=== PATIENT | female | born 1970 | race Asian ===

== ENCOUNTER 2016-08-21 13:50 | Emergency (ER) | payer BC, OTHER ==
[~2016-08-21] VITALS: Ht 160 cm; Wt 77.1 kg
[2016-08-21] MEDS ORDERED: IV NS 0.9% 1,000 ML BAG IV ONE (14:30)
--- NOTE | 2016-08-21 14:30 | NUR ---
PT BIB SELF, C/O DIZZINESS. PATIENT A/OX 4, BREATHING EVEN AND UNLABORED ON ROOM AIR. NO SOB. PATIENTS VITALS STABLE. SAFETY AND COMFORT MEASURES IN PLACE, AWAITING MD ORDERS.
[2016-08-21 14:41] LABS: BASOPHILS % (AUTO) 0.5 % (0.0-2.0); EOSINOPHILS # (AUTO) 0.3 /CMM (0.0-0.7); EOSINOPHILS % (AUTO) 4.7 % (0.0-6.0); HEMATOCRIT 39 % (33-45); LYMPHOCYTES # (AUTO) 1.7 /CMM (0.8-4.8); LYMPHOCYTES % (AUTO) 23.6 % (20.0-44.0); MEAN CORPUSCULAR HEMOGLOBIN 28 PG (26.0-33.0); MEAN CORPUSCULAR HGB CONC 33 g/dl (31.0-36.0); MEAN CORPUSCULAR VOLUME 85 fL (82-100); MONOCYTES # (AUTO) 0.5 /CMM (0.1-1.30); MONOCYTES % (AUTO) 6.8 % (2.0-12.0); NEUTROPHILS # (AUTO) 4.7 /CMM (1.8-8.9); NEUTROPHILS % (AUTO) 64.4 % (43.0-81.0); PLATELET COUNT (AUTO) 315 /CMM (150-450); RED BLOOD CELL COUNT(AUTO) 4.56 MIL/uL (4.0-5.2); WHITE BLOOD COUNT (AUTO) 7.2 K/uL (4.3-11.0)
[2016-08-21] MEDS ORDERED: IV NS 0.9% 1,000 ML ONE (14:44)
[2016-08-21] MEDS ORDERED: IV SET PRIMARY 1 EA INFUS.SET MC ONE (14:44)
[2016-08-21 14:52] LABS: CALCIUM, SERUM 8.5 mg/dL (8.5-10.1); CARBON DIOXIDE 25 mmol/L (21-32); CHLORIDE 106 mmol/L (98-107); CREATININE 0.9 mg/dL (0.6-1.3); GLUCOSE 117 mg/dL (74-106); POTASSIUM 4.2 mmol/L (3.5-5.1); SODIUM SERUM 139 mmol/L (136-145); UREA NITROGEN, BLOOD 13 mg/dL (7-18)
--- NOTE | 2016-08-21 14:53 | NUR ---
1L IV NS STARTED ON RAC, 20 GAUGE. WILL CONTINUE TO MONITOR.
[2016-08-21 14:56] LABS: INR 0.99 (0.87-1.13); PROTHROMBIN TIME 10.3 SECS (9.5-12.7)
[2016-08-21 14:57] LABS: ALANINE AMINOTRANSFERASE 23 U/L (12-78); ALBUMIN 3.7 g/dL (3.4-5.0); ALKALINE PHOSPHATASE 78 U/L (46-116); ASPARTATE AMINOTRANSFERASE 14 U/L (15-37); BILIRUBIN,DIRECT 0.1 mg/dL (0.0-0.2); BILIRUBIN,TOTAL 0.2 mg/dL (0.2-1.0); TOTAL PROTEIN, SERUM 7.5 g/dL (6.4-8.2)
[2016-08-21 15:00] LABS: TROPONIN I < 0.017 ng/mL (0.00-0.056)
[2016-08-21 16:20] VITALS: BP 123/70
--- NOTE | 2016-08-21 16:21 | NUR ---
PATIENT CLEARED FOR DISCHARGE PER MD. PATIENT REMAINS IN STABLE CONDITION. VITALS WNL. IV RMEOVED. ID BAND REMOVED. PATIENT PROVIDED WITH DISCHARGE TEACHING, VERBALIZES UNDERSTANDING. PATIENT DISCHARGED FROM ER.
== END 2016-08-21 16:11 | disposition home or self-care (01) ==
LOC: ER 13:51
DX: R42 Dizziness and giddiness (principal); K80.20 Calculus of gallbladder without cholecystitis without obstruction; R79.1 Abnormal coagulation profile
CPT/HCPCS: 36415; 71010; 80048; 80076; 84484; 84702; 85025; 85730; 93005; 96360; 99285; A4606; J7030; Z7610

== ENCOUNTER 2022-11-27 14:23 | Emergency (ER) | payer OTHER ==
[~2022-11-27] VITALS: Ht 157.5 cm; Wt 85.7 kg
[2022-11-27 15:20] LABS: BASOPHILS % (AUTO) 0.5 % (0.0-2.0); EOSINOPHILS # (AUTO) 0.2 K/uL (0.0-0.7); EOSINOPHILS % (AUTO) 2.7 % (0.0-6.0); HEMATOCRIT 40 % (33-45); HEMOGLOBIN 13.1 g/dL (11.5-14.8); LYMPHOCYTES # (AUTO) 1.7 K/uL (0.8-4.8); LYMPHOCYTES % (AUTO) 28.1 % (20.0-44.0); MEAN CORPUSCULAR HEMOGLOBIN 28 PG (26.0-33.0); MEAN CORPUSCULAR HGB CONC 33 g/dl (31.0-36.0); MEAN CORPUSCULAR VOLUME 85 fL (82-100); MONOCYTES # (AUTO) 0.5 K/uL (0.1-1.30); MONOCYTES % (AUTO) 8.1 % (2.0-12.0); NEUTROPHILS # (AUTO) 3.7 K/uL (1.8-8.9); NEUTROPHILS % (AUTO) 60.6 % (43.0-81.0); PLATELET COUNT (AUTO) 291 K/uL (150-450); RED CELL DISTRIBUTION WIDTH 14.1 % (11.5-15.0); WHITE BLOOD COUNT (AUTO) 6.1 K/uL (4.3-11.0)
[2022-11-27 15:27] LABS: CARBON DIOXIDE 25 mmol/L (21-32); CHLORIDE 104 mmol/L (98-107); CREATININE 0.7 mg/dL (0.6-1.3); GLUCOSE 95 mg/dL (74-106); POTASSIUM 4.2 mmol/L (3.5-5.1); SODIUM SERUM 138 mmol/L (136-145); UREA NITROGEN, BLOOD 9 mg/dL (7-18)
[2022-11-27] MEDS ORDERED: MECLIZINE HCL 25 MG TABLET ONE (15:57)
[2022-11-27] MEDS ORDERED: MECLIZINE HCL 12.5 MG TABLET PO ONE (16:00)
[2022-11-27] MEDS ORDERED: MECL-159 PO (16:47)
[2022-11-27 16:54] VITALS: BP 112/70; TEMP 98; O2SAT 100
== END 2022-11-27 16:55 | disposition home or self-care (01) ==
LOC: ER 14:32
DX: R42 Dizziness and giddiness (principal)
CPT/HCPCS: 99285; 70450; 71045; 93005 ×2; 85025; 80048; 36415; 84484; J8597

== ENCOUNTER 2023-10-12 14:24 | Emergency (ER) | payer MEDICAID, OTHER ==
[~2023-10-12] VITALS: Ht 157.5 cm; Wt 88.5 kg
[~2023-10-12 14:24] MED LIST: MECL-159 PO
[2023-10-12] MEDS ORDERED: NITROGLYCERIN 0.4 MG/TAB BOTTLE ONE (14:55)
[2023-10-12] MEDS: NITROGLYCERIN 0.4 MG/TAB BOTTLE SL ONE (15:09)
[2023-10-12] MEDS ORDERED: ASPIRIN 325 MG TABLET ONE (15:10)
[2023-10-12] MEDS: ASPIRIN 325 MG TABLET PO ONE (15:13)
[2023-10-12 15:18] LABS: BASOPHILS % (AUTO) 0.8 % (0.0-2.0); EOSINOPHILS # (AUTO) 0.2 K/uL (0.0-0.7); EOSINOPHILS % (AUTO) 3.1 % (0.0-6.0); HEMATOCRIT 40 % (33-45); HEMOGLOBIN 12.9 g/dL (11.5-14.8); LYMPHOCYTES # (AUTO) 1.6 K/uL (0.8-4.8); LYMPHOCYTES % (AUTO) 31.8 % (20.0-44.0); MEAN CORPUSCULAR HEMOGLOBIN 28 PG (26.0-33.0); MEAN CORPUSCULAR HGB CONC 33 g/dl (31.0-36.0); MEAN CORPUSCULAR VOLUME 85 fL (82-100); MONOCYTES # (AUTO) 0.4 K/uL (0.1-1.30); MONOCYTES % (AUTO) 8.3 % (2.0-12.0); NEUTROPHILS # (AUTO) 2.8 K/uL (1.8-8.9); PLATELET COUNT (AUTO) 259 K/uL (150-450); RED BLOOD CELL COUNT(AUTO) 4.66 MIL/uL (4.0-5.2); RED CELL DISTRIBUTION WIDTH 13.7 % (11.5-15.0); WHITE BLOOD COUNT (AUTO) 5.1 K/uL (4.3-11.0)
[2023-10-12 15:34] LABS: CALCIUM, SERUM 9.2 mg/dL (8.5-10.1); CARBON DIOXIDE 26 mmol/L (21-32); CHLORIDE 106 mmol/L (98-107); CREATININE 0.6 mg/dL (0.6-1.3); GLUCOSE 84 mg/dL (74-106); POTASSIUM 4.1 mmol/L (3.5-5.1); SODIUM SERUM 140 mmol/L (136-145); UREA NITROGEN, BLOOD 12 mg/dL (7-18)
[2023-10-12] MEDS ORDERED: CT SWABBABLE VALVE TRANS SET 1 EA INFUS.SET MC ONE (15:35)
[2023-10-12] MEDS ORDERED: IOHEXOL-350 100 ML VIAL IV ONE (15:35)
[2023-10-12] MEDS ORDERED: IV NS 0.9% 250 ML IV ONE (15:36)
[2023-10-12 15:47] LABS: NT-PRO BNP 88 pg/mL (0-125)
[2023-10-12] MEDS ORDERED: ATOR10TA PO (17:04)
[2023-10-12] MEDS ORDERED: MECL-185 PO (17:04)
[2023-10-12 21:01] VITALS: BP 112/62; TEMP 98; O2SAT 100
== END 2023-10-12 21:02 | disposition home or self-care (01) ==
LOC: ER 14:24
DX: R07.89 Other chest pain (principal); R06.00 Dyspnea, unspecified; E78.5 Hyperlipidemia, unspecified; I10 Essential (primary) hypertension; Z20.822 Contact with and (suspected) exposure to COVID-19
CPT/HCPCS: 99285; 71275; 71045; 87426; 93005 ×2; 85025; 80048; 85378; 36415; 84484 ×2; 83880; J7050; Q9967